=== PATIENT | male | born 1965 | race African-American/Black ===

== ENCOUNTER 2016-10-28 10:55 | Emergency (ER) | payer OTHER ==
[2016-10-28 11:00] VITALS: BP 155/92; PULSE 70; TEMP 98.3; BMI 27.8
--- NOTE | 2016-10-28 11:48 | PDOC ---
History of Present Illness - General Chief Complaint: Injury Stated Complaint: PAIN Time Seen by Provider: 10/28/16 11:45 History Source: Patient Exam Limitations: No Limitations - History of Present Illness Initial Comments: 10/28/16 11:46 slipped walking down steps and kicked wall with left great toe. Occurred: reports: other (2 days ) Severity: reports: mild, moderate Pain Location: reports: lower extremity (left great toe) Associated Symptoms (Fall): denies symptoms Past History - Travel Traveled outside of the country in the last 30 days: No Close contact w/someone who was outside of country & ill: No - Past Medical History Allergies/Adverse Reactions: Allergies Allergy/AdvReac Type Severity Reaction Status Date / Time DAIRY Allergy Uncoded 10/28/16 11:01 Home Medications: Ambulatory Orders Amlodipine 10/Benazepril 20 [Lotrel (Nf)] 1 cap PO DAILY 06/16/11 HTN: Yes - Immunization History Td Vaccination: Yes Immunization Up to Date: Yes - Psycho/Social/Smoking Cessation Hx Anxiety: No Suicidal Ideation: No Smoking Status: No Smoking History: Former smoker Have you smoked in the past 12 months: No Number of Cigarettes Smoked Daily: 0 Information on smoking cessation initiated: No Hx Alcohol Use: No Drug/Substance Use Hx: No Review of Systems - Review of Systems Able to Perform ROS?: Yes Is the patient limited Occitan proficient: Yes Constitutional: Yes: See HPI. No: Symptoms Reported Musculoskeletal: Yes: Symptoms Reported, See HPI, Back Pain, Joint Pain Integumentary: Yes: Symptoms Reported (great toe/left ), See HPI, Bruising All Other Systems: Reviewed and Negative *Physical Exam - Vital Signs Last Vital Signs Temp Pulse Resp BP Pulse Ox 98.3 F 70 18 155/92 100 10/28/16 10:58 10/28/16 10:58 10/28/16 10:58 10/28/16 10:58 10/28/16 10:58 - Physical Exam General Appearance: Yes: Nourished, Appropriately Dressed, Apparent Distress, Mild Distress HEENT: positive: GILBERTO, Normal ENT Inspection, TMs Normal, Pharynx Normal Respiratory/Chest: positive: Lungs Clear Extremity: positive: Normal Capillary Refill Integumentary: positive: Ecchymosis, Bruising (distal great toe) Neurologic: positive: dental practitioner II-XII NML intact, Fully Oriented, Alert, Normal Mood/ Affect, Normal Response, Motor Strength 09/16 ED Treatment Course - RADIOLOGY Radiology Studies Ordered: Category Date Time Status FOOT-LEFT [RAD] Stat Radiology 10/28/16 11:46 Ordered Progress Note - Progress Note Progress Note: X-rays negative for fractures or dislocation, foot was put in cast shoe and instructed to rest, elevate in conservative measures. Can follow up as needed *DC/Admit/Observation/Transfer Diagnosis at time of Disposition: Contusion Qualifiers: Encounter type: initial encounter Contusion area: toe Toe: great toe Damage to nail status: without damage Laterality: right Qualified Code(s): S90.111A - Contusion of right great toe without damage to nail, initial encounter - Discharge Dispostion Disposition: HOME Condition at time of disposition: Stable Admit: No - Referrals Referrals: Sami Beverly MD [Primary Care Provider] - Willi Eng MD [Staff Physician] - - Patient Instructions Printed Discharge Instructions: DI for Contusion Additional Instructions: Rest, ice to area on and off for 15 minutes 4-6 times a day Avoid heavy lifting or exercise until pain and swelling is resolved or until further directed Keep area highly elevated to reduce swelling Use splints/Aravind wrap as directed Followup with orthopedist in one to 2 days if not improving, if significantly improved may wait one week for followup with orthopedist May use ibuprofen 2-200 mg tablets every 6 hours as needed for pain - Post Discharge Activity Work/School Note: Back to Work
== END 2016-10-28 12:41 | disposition home or self-care (01) ==
LOC: JERFT 10:55
DX: S90.111A Contusion of right great toe without damage to nail, initial encounter (principal); W10.8XXA Fall (on) (from) other stairs and steps, initial encounter; Y93.89 Activity, other specified; Y92.89 Other specified places as the place of occurrence of the external cause
CPT/HCPCS: 73630-TC-LT; 99281-25